=== PATIENT | male | born 1965 | race Caucasian/White ===

== ENCOUNTER 2019-06-28 13:51 | Emergency (ER) | payer MEDICAID ==
[~2019-06-28] VITALS: Ht 167.6 cm; Wt 98.0 kg
[~2019-06-28 13:51] MED LIST: ALBU8HFA PO; ARIP400S IM; CLON-527 PO; ESCI20TA29 PO; LISI10TA4 PO; OXCA150T5 PO; PRAZ1CAP5 PO
[2019-06-28 14:11] VITALS: BP 182/113
[2019-06-28] MEDS ORDERED: ARIP30TA7 PO (15:34)
[2019-06-28] MEDS ORDERED: ESCI20TA PO (15:34)
== END 2019-06-28 15:44 | disposition home or self-care (01) ==
LOC: ER 13:51
DX: F41.9 Anxiety disorder, unspecified (principal); F31.9 Bipolar disorder, unspecified; F17.200 Nicotine dependence, unspecified, uncomplicated; Z79.899 Other long term (current) drug therapy
CPT/HCPCS: 99283